=== PATIENT | female | born 1940 | race Caucasian/White ===

== ENCOUNTER → 2017-09-13 | Outpatient (CLI) | payer MEDICARE, BC ==
[~2017-09-13] MED LIST: ALORA0.05 MG/24 TD; BETAPACE 80MG80 MG PO; CALTRATE-600 W600 MG PO; CITRACAL + D 251 TAB PO; COUMADIN 1MG1 MG/TAB PO; COUMADIN 3MG3 MG/TAB PO; COUMADIN PO; COUMADIN4 MG; CYMBALTA30 MG PO; FISH OIL CONC1000 MG PO; FLEXERIL 1010 MG/TAB PO; GENTEAL0.32 OP; K-PHOS NEUTRAL250 M1 PO; LOVENOX 8080 MG/0.8 SQ; NORCO 325 MG-51 TAB PO; ONE DAILY1 TA2 PO; OSTEO-BI-FLEX 21 TAB PO; PREMARIN PO; PREVACID 30MG30 M1 PO; TRAVATAN Z 2.52.5 ML OU; TYLENOL 500MG500 MG PO; VITAMIN E1000 U/CAP PO; femhrt PO
== END ==
LOC: COL.CARD 12:55
DX: R25.1 Tremor, unspecified (principal)

== ENCOUNTER 2018-03-16 06:10 | Inpatient (IN) | payer MEDICARE, BC ==
[~2018-03-16] VITALS: Ht 175.3 cm; Wt 66.8 kg
[2018-03-16 10:00] VITALS: BP 131/50; PULSE 72; TEMP 98.2
[2018-03-16] MEDS ORDERED: CLARITIN 1010 MG/TAB PO (10:10)
[2018-03-16] MEDS ORDERED: EXELON4.5 MG PO (10:11)
[2018-03-16] MEDS ORDERED: NAMENDA 10MG TA10 MG PO (10:11)
[2018-03-16] MEDS ORDERED: COUMADIN 22.5 MG/TAB PO (10:13)
[2018-03-16] MEDS ORDERED: COUMADIN 2MG2 MG/TAB PO (10:14)
[2018-03-16] MEDS ORDERED: FOSAMAX 70MG TA70 MG PO (10:15)
[2018-03-16] MEDS ORDERED: NORCO 325 MG-101 TAB PO (10:17)
[2018-03-16] MEDS ORDERED: ATIVAN 0.50.5 MG/TAB PO (10:17)
[2018-03-16 10:18] LABS: BASO % 0.2 % (0.0-2.0); EOS % 0.2 % (0-4.0); GRAN # 8.9 (1.4-6.5); HEMOGLOBIN 11.3 g/dl (12.5-16.0); LYMPH # 1.2 (1.2-3.4); LYMPH % 9.5 % (20.0-51.0); MEAN CELL VOLUME 100 fl (80.0-100.0); MEAN CORPUSCULAR HEMOGLOBIN 33 pg (27.0-31.0); MEAN CORPUSCULAR HGB CONC 33 g/dl (33.0-37.0); MEAN PLATELET VOLUME 11.5 fl (7.4-10.4); MONO # 1.9 (0.1-0.6); MONO % 15.5 % (1.7-9.3); PLATELET COUNT 101 K/mm3 (130-400); RED BLOOD COUNT 3.46 M/mm3 (4.10-5.30); REDCELL DISTRIBUTION WIDTH-CV 16.1 % (11.5-14.5)
[2018-03-16] MEDS ORDERED: NEURONTIN300 MG/CAP PO (10:18)
[2018-03-16 10:21] LABS: INR 3.1 (0.8-3.0); PROTHROMBIN TIME 35.7 SECONDS (9.7-12.8)
[2018-03-16 10:28] LABS: HEMATOCRIT 34.7 % (37.0-47.0)
[2018-03-16 10:30] LABS: ALBUMIN 4.3 gm/dL (3.5-5.0); CALCIUM 8.7 mg/dL (8.4-10.2); CREATININE, serum 0.6 mg/dL (0.52-1.25); POTASSIUM 3.9 mmol/L (3.4-5.0); TOTAL PROTEIN 7.3 gm/dL (6.4-8.2)
[2018-03-16 10:37] LABS: PRE ALBUMIN 20.7 mg/dL (17.6-36.0)
[2018-03-16 15:30] VITALS: BP 104/45; PULSE 73; TEMP 98
[2018-03-16 20:36] VITALS: BP 129/48; PULSE 76; TEMP 98.1
[2018-03-16 22:16] LABS: INR 3.3 (0.8-3.0); PROTHROMBIN TIME 37.5 SECONDS (9.7-12.8)
[2018-03-16 23:49] VITALS: BP 93/44; PULSE 76; TEMP 97.5
[2018-03-17 00:41] VITALS: BP 109/43; PULSE 72
[2018-03-17 02:37] LABS: INR 2.4 (0.8-3.0); PROTHROMBIN TIME 27.3 SECONDS (9.7-12.8)
[2018-03-17 04:46] LABS: HEMOGLOBIN 10.5 g/dl (12.5-16.0); MEAN CELL VOLUME 100 fl (80.0-100.0); MEAN CORPUSCULAR HEMOGLOBIN 33 pg (27.0-31.0); MEAN CORPUSCULAR HGB CONC 33 g/dl (33.0-37.0); MEAN PLATELET VOLUME 11.8 fl (7.4-10.4); PLATELET COUNT 99 K/mm3 (130-400); RED BLOOD COUNT 3.18 M/mm3 (4.10-5.30); REDCELL DISTRIBUTION WIDTH-CV 16.5 % (11.5-14.5)
[2018-03-17 04:50] LABS: HEMATOCRIT 31.9 % (37.0-47.0)
[2018-03-17 04:52] LABS: INR 1.9 (0.8-3.0)
[2018-03-17 04:55] VITALS: BP 115/49; PULSE 77; TEMP 98.6
[2018-03-17 04:57] LABS: CALCIUM 8.2 mg/dL (8.4-10.2); CREATININE, serum 0.69 mg/dL (0.52-1.25); POTASSIUM 3.6 mmol/L (3.4-5.0)
[2018-03-17 06:26] LABS: BAND 12 % (0-10); LYMPHOCYTE 12 % (20.0-51.0); NEUTROPHILS 55 % (42.0-75.2)
[2018-03-17 06:27] LABS: HYPOCHROMIA 1+; PLATELET ESTIMATE DECREASED (NORMAL)
[2018-03-17 07:30] VITALS: BP 131/51; PULSE 76; TEMP 98.3
[2018-03-17 12:19] VITALS: BP 128/60; PULSE 80; TEMP 98
[2018-03-17 17:00] VITALS: BP 130/59; PULSE 82; TEMP 98.7
[2018-03-17 20:28] VITALS: BP 118/45; PULSE 82; TEMP 97.7
[2018-03-18] VITALS (12 sets, daily range): BP systolic 100–129; BP diastolic 40–56; PULSE 67–87; TEMP 96.2–98.9
[2018-03-18 07:10] LABS: MEAN CELL VOLUME 99 fl (80.0-100.0); MEAN CORPUSCULAR HGB CONC 33 g/dl (33.0-37.0); MEAN PLATELET VOLUME 12.6 fl (7.4-10.4); PLATELET COUNT 88 K/mm3 (130-400); RED BLOOD COUNT 2.78 M/mm3 (4.10-5.30); REDCELL DISTRIBUTION WIDTH-CV 16.2 % (11.5-14.5)
[2018-03-18 07:20] LABS: HEMATOCRIT 27.5 % (37.0-47.0); HEMOGLOBIN 9.1 g/dl (12.5-16.0); MEAN CORPUSCULAR HEMOGLOBIN 33 pg (27.0-31.0)
[2018-03-18 07:27] LABS: ALBUMIN 3.4 gm/dL (3.5-5.0); BILIRUBIN,TOTAL 0.7 mg/dL (0.0-1.0); CREATININE, serum 0.53 mg/dL (0.52-1.25); POTASSIUM 3.9 mmol/L (3.4-5.0); TOTAL PROTEIN 6.1 gm/dL (6.4-8.2)
[2018-03-18 07:33] LABS: INR 1.2 (0.8-3.0); PROTHROMBIN TIME 13.9 SECONDS (9.7-12.8)
[2018-03-18 09:13] LABS: ANISOCYTOSIS 1+; BAND 4 % (0-10); EOSINOPHIL 1 % (0-4); LYMPHOCYTE 17 % (20.0-51.0); NEUTROPHILS 62 % (42.0-75.2); PLATELET ESTIMATE DECREASED (NORMAL)
[2018-03-18 15:16] LABS: COLLECTION METHOD CATHETER
[2018-03-18 15:30] LABS: PH 7 (5-8); SQUAMOUS EPITHELIAL 0-2 /hpf; URINE APPEARANCE Clear; URINE BACTERIA None Seen /hpf; URINE BILIRUBIN Negative (NEGATIVE); URINE BLOOD Negative (NEGATIVE); URINE COLOR Yellow; URINE GLUCOSE Negative (NEGATIVE); URINE KETONE Negative (NEGATIVE); URINE LEUKOCYTE ESTERASE 1+ (NEGATIVE); URINE NITRATE Negative (NEGATIVE); URINE PROTEIN(semi-quant) Negative (NEGATIVE); URINE RBC 0-2 /hpf; URINE UROBILINOGEN >=4.0 mg/dL (NEGATIVE)
[2018-03-19] VITALS (13 sets, daily range): BP systolic 101–145; BP diastolic 41–61; PULSE 71–87; TEMP 97.5–98.4
[2018-03-19 07:01] LABS: MEAN CELL VOLUME 101 fl (80.0-100.0); MEAN CORPUSCULAR HGB CONC 33 g/dl (33.0-37.0); MEAN PLATELET VOLUME 12.1 fl (7.4-10.4); PLATELET COUNT 82 K/mm3 (130-400); RED BLOOD COUNT 2.28 M/mm3 (4.10-5.30); REDCELL DISTRIBUTION WIDTH-CV 16.6 % (11.5-14.5)
[2018-03-19 07:10] LABS: HEMATOCRIT 23.1 % (37.0-47.0); HEMOGLOBIN 7.5 g/dl (12.5-16.0); MEAN CORPUSCULAR HEMOGLOBIN 33 pg (27.0-31.0)
[2018-03-19 07:12] LABS: ALBUMIN 2.8 gm/dL (3.5-5.0); BILIRUBIN,TOTAL 0.6 mg/dL (0.0-1.0); CALCIUM 7.5 mg/dL (8.4-10.2); CREATININE, serum 0.52 mg/dL (0.52-1.25); POTASSIUM 3.7 mmol/L (3.4-5.0); TOTAL PROTEIN 5.5 gm/dL (6.4-8.2)
[2018-03-19 09:27] LABS: HEMATOCRIT 23.7 % (37.0-47.0); HEMOGLOBIN 7.6 g/dl (12.5-16.0)
[2018-03-19 09:50] LABS: ANISOCYTOSIS 1+; BAND 3 % (0-10); LYMPHOCYTE 9 % (20.0-51.0); NEUTROPHILS 70 % (42.0-75.2); PLATELET ESTIMATE DECREASED (NORMAL)
[2018-03-19 14:58] LABS: PARTIAL THROMBOPLASTIN TIME 26.3 SECONDS (26.0-37.0)
[2018-03-19 15:32] LABS: INR 1.3 (0.8-3.0); PROTHROMBIN TIME 14.6 SECONDS (9.7-12.8)
[2018-03-20 03:40] VITALS: BP 124/50; PULSE 92; TEMP 98.6
[2018-03-20 07:23] VITALS: BP 131/62; PULSE 81; TEMP 97.7
[2018-03-20 07:30] LABS: MEAN CORPUSCULAR HGB CONC 34 g/dl (33.0-37.0); MEAN PLATELET VOLUME 12.4 fl (7.4-10.4); PLATELET COUNT 108 K/mm3 (130-400); REDCELL DISTRIBUTION WIDTH-CV 18.8 % (11.5-14.5)
[2018-03-20 07:33] LABS: HEMATOCRIT 27.7 % (37.0-47.0); HEMOGLOBIN 9.3 g/dl (12.5-16.0); MEAN CELL VOLUME 96 fl (80.0-100.0); MEAN CORPUSCULAR HEMOGLOBIN 32 pg (27.0-31.0)
[2018-03-20 07:42] LABS: CALCIUM 7.6 mg/dL (8.4-10.2); CREATININE, serum 0.55 mg/dL (0.52-1.25); POTASSIUM 3.2 mmol/L (3.4-5.0)
[2018-03-20 08:11] LABS: BAND 3 % (0-10); LYMPHOCYTE 6 % (20.0-51.0); METAMYELOCYTE 3 % (0-0); NEUTROPHILS 76 % (42.0-75.2)
[2018-03-20 08:13] LABS: PLATELET ESTIMATE DECREASED (NORMAL)
[2018-03-20 08:14] LABS: HYPOCHROMIA 1+; POLYCHROMASIA 1+
[2018-03-20 08:16] LABS: MICROCYTOSIS 1+
[2018-03-20 08:46] LABS: INR 1.6 (0.8-3.0); PROTHROMBIN TIME 18.5 SECONDS (9.7-12.8)
[2018-03-20 11:27] VITALS: BP 111/56; PULSE 93; TEMP 97.9
[2018-03-20 15:25] VITALS: BP 102/61; PULSE 85; TEMP 97.8
[2018-03-20 20:00] VITALS: BP 121/48; PULSE 85; TEMP 98.6
[2018-03-21] VITALS: BP 119/54; PULSE 87; TEMP 98.3
[2018-03-21 04:00] VITALS: BP 121/52; PULSE 78; TEMP 97.9
[2018-03-21 06:30] LABS: HEMATOCRIT 24.1 % (37.0-47.0); MEAN CELL VOLUME 98 fl (80.0-100.0); MEAN CORPUSCULAR HEMOGLOBIN 32 pg (27.0-31.0); MEAN CORPUSCULAR HGB CONC 33 g/dl (33.0-37.0); MEAN PLATELET VOLUME 11.6 fl (7.4-10.4); PLATELET COUNT 127 K/mm3 (130-400); RED BLOOD COUNT 2.47 M/mm3 (4.10-5.30); REDCELL DISTRIBUTION WIDTH-CV 18.5 % (11.5-14.5)
[2018-03-21 06:43] LABS: CALCIUM 7.8 mg/dL (8.4-10.2); CREATININE, serum 0.65 mg/dL (0.52-1.25); MAGNESIUM 2.2 mg/dL (1.6-2.3); POTASSIUM 3.5 mmol/L (3.4-5.0)
[2018-03-21 07:40] VITALS: BP 112/48; PULSE 82; TEMP 98.3
[2018-03-21 07:45] LABS: INR 2.1 (0.8-3.0); PROTHROMBIN TIME 24.4 SECONDS (9.7-12.8)
[2018-03-21 12:00] VITALS: BP 117/61; PULSE 81; TEMP 98.2
[2018-03-21 15:55] VITALS: BP 127/53; PULSE 82; TEMP 98.4
[2018-03-21 17:23] LABS: HEMATOCRIT 23.9 % (37.0-47.0); HEMOGLOBIN 7.8 g/dl (12.5-16.0)
[2018-03-21 20:00] VITALS: BP 118/54; PULSE 88; TEMP 98.3
[2018-03-22] VITALS: BP 105/46; PULSE 79; TEMP 98.4
[2018-03-22 05:02] VITALS: BP 119/58; PULSE 82; TEMP 99.2
[2018-03-22 05:53] LABS: MEAN CELL VOLUME 101 fl (80.0-100.0); MEAN CORPUSCULAR HGB CONC 32 g/dl (33.0-37.0); MEAN PLATELET VOLUME 11.8 fl (7.4-10.4); PLATELET COUNT 169 K/mm3 (130-400); RED BLOOD COUNT 2.29 M/mm3 (4.10-5.30); REDCELL DISTRIBUTION WIDTH-CV 18.7 % (11.5-14.5)
[2018-03-22 05:56] LABS: HEMATOCRIT 23.2 % (37.0-47.0); HEMOGLOBIN 7.5 g/dl (12.5-16.0); MEAN CORPUSCULAR HEMOGLOBIN 33 pg (27.0-31.0)
[2018-03-22 05:58] LABS: INR 3.2 (0.8-3.0); PROTHROMBIN TIME 36.6 SECONDS (9.7-12.8)
[2018-03-22 06:12] LABS: ANISOCYTOSIS 1+; BAND 8 % (0-10); HYPOCHROMIA 1+; LYMPHOCYTE 9 % (20.0-51.0); METAMYELOCYTE 5 % (0-0); MICROCYTOSIS 1+; MYELOCYTE 5 % (0-0); NEUTROPHILS 61 % (42.0-75.2); NUCLEATED RED BLOOD CELL 2 (0-6); PLATELET ESTIMATE NORMAL (NORMAL)
[2018-03-22 07:34] VITALS: BP 110/53; PULSE 80; TEMP 98.1
[2018-03-22 11:40] VITALS: BP 108/46; PULSE 81; TEMP 98.2
[2018-03-22 16:09] VITALS: BP 123/54; PULSE 84; TEMP 98.1
[2018-03-22 19:39] VITALS: BP 134/62; PULSE 80; TEMP 98.3
[2018-03-23] VITALS (10 sets, daily range): BP systolic 114–147; BP diastolic 45–88; PULSE 71–88; TEMP 97.1–98.5
[2018-03-23 07:28] LABS: MEAN CORPUSCULAR HGB CONC 31 g/dl (33.0-37.0); MEAN PLATELET VOLUME 10.9 fl (7.4-10.4); PLATELET COUNT 176 K/mm3 (130-400); REDCELL DISTRIBUTION WIDTH-CV 19.3 % (11.5-14.5)
[2018-03-23 07:33] LABS: CREATININE, serum 0.63 mg/dL (0.52-1.25); POTASSIUM 3.6 mmol/L (3.4-5.0)
[2018-03-23 07:35] LABS: HEMATOCRIT 22.4 % (37.0-47.0); MEAN CORPUSCULAR HEMOGLOBIN 33 pg (27.0-31.0)
[2018-03-23 07:36] LABS: MEAN CELL VOLUME 107 fl (80.0-100.0)
[2018-03-23 07:37] LABS: HEMOGLOBIN 6.9 g/dl (12.5-16.0)
[2018-03-23 07:47] LABS: PROTHROMBIN TIME 45.2 SECONDS (9.7-12.8)
[2018-03-23 09:58] LABS: BAND 6 % (0-10); LYMPHOCYTE 14 % (20.0-51.0); METAMYELOCYTE 2 % (0-0); NEUTROPHILS 68 % (42.0-75.2); PLATELET ESTIMATE NORMAL (NORMAL)
[2018-03-23 09:59] LABS: POLYCHROMASIA 1+
[2018-03-24 04:19] LABS: MEAN CORPUSCULAR HGB CONC 32 g/dl (33.0-37.0); MEAN PLATELET VOLUME 10.9 fl (7.4-10.4); PLATELET COUNT 189 K/mm3 (130-400); RED BLOOD COUNT 2.62 M/mm3 (4.10-5.30); REDCELL DISTRIBUTION WIDTH-CV 19.9 % (11.5-14.5)
[2018-03-24 04:22] LABS: HEMOGLOBIN 8.4 g/dl (12.5-16.0); MEAN CORPUSCULAR HEMOGLOBIN 32 pg (27.0-31.0)
[2018-03-24 04:23] VITALS: BP 137/110; PULSE 77; TEMP 97.9
[2018-03-24 04:23] LABS: HEMATOCRIT 26.2 % (37.0-47.0); MEAN CELL VOLUME 100 fl (80.0-100.0)
[2018-03-24 04:26] LABS: CALCIUM 8.5 mg/dL (8.4-10.2); CREATININE, serum 0.58 mg/dL (0.52-1.25); POTASSIUM 4.1 mmol/L (3.4-5.0)
[2018-03-24 04:31] LABS: INR 3.8 (0.8-3.0); PROTHROMBIN TIME 43.7 SECONDS (9.7-12.8)
[2018-03-24 05:06] LABS: COLLECTION METHOD CATHETER
[2018-03-24 05:41] LABS: MUCOUS Present /lpf; PH 7 (5-8); SQUAMOUS EPITHELIAL 0-2 /hpf; URINE APPEARANCE Hazy; URINE BACTERIA None Seen /hpf; URINE BILIRUBIN Negative (NEGATIVE); URINE BLOOD Negative (NEGATIVE); URINE COLOR Amber; URINE GLUCOSE Negative (NEGATIVE); URINE KETONE Negative (NEGATIVE); URINE LEUKOCYTE ESTERASE Negative (NEGATIVE); URINE NITRATE Negative (NEGATIVE); URINE PROTEIN(semi-quant) 1+ (NEGATIVE); URINE RBC 0-2 /hpf; URINE UROBILINOGEN Negative (NEGATIVE)
[2018-03-24 06:07] LABS: ANISOCYTOSIS 2+; BAND 12 % (0-10); LYMPHOCYTE 16 % (20.0-51.0); METAMYELOCYTE 2 % (0-0); NEUTROPHILS 59 % (42.0-75.2); NUCLEATED RED BLOOD CELL 1 (0-6); PLATELET ESTIMATE NORMAL (NORMAL)
[2018-03-24 06:34] VITALS: BP 112/69; PULSE 76
[2018-03-24 07:30] VITALS: BP 156/81; PULSE 76; TEMP 97.7
[2018-03-24 09:08] LABS: MAGNESIUM 2.3 mg/dL (1.6-2.3)
[2018-03-24 09:25] LABS: PROLACTIN 40.8 ng/mL (3.0-18.6)
[2018-03-24 11:54] VITALS: BP 134/92; PULSE 70; TEMP 97.5
[2018-03-24 15:25] VITALS: BP 127/69; PULSE 80; TEMP 98.8
[2018-03-24 19:15] VITALS: BP 147/60; PULSE 79; TEMP 97.9
[2018-03-25 04:54] VITALS: BP 126/67; PULSE 71; TEMP 96.8
[2018-03-25 08:00] VITALS: BP 108/38; PULSE 67; TEMP 97.5
[2018-03-25 09:10] LABS: MEAN CELL VOLUME 103 fl (80.0-100.0); MEAN CORPUSCULAR HGB CONC 31 g/dl (33.0-37.0); PLATELET COUNT 199 K/mm3 (130-400); RED BLOOD COUNT 2.64 M/mm3 (4.10-5.30); REDCELL DISTRIBUTION WIDTH-CV 20.2 % (11.5-14.5)
[2018-03-25 09:17] LABS: CALCIUM 8.4 mg/dL (8.4-10.2); CREATININE, serum 0.64 mg/dL (0.52-1.25); HEMATOCRIT 27.2 % (37.0-47.0); HEMOGLOBIN 8.5 g/dl (12.5-16.0); MEAN CORPUSCULAR HEMOGLOBIN 32 pg (27.0-31.0); POTASSIUM 3.5 mmol/L (3.4-5.0)
[2018-03-25] MEDS ORDERED: SENOKOT S 50 MG1 TAB PO (09:20)
[2018-03-25] MEDS ORDERED: ATIVAN 0.50.5 MG/TAB PO ×2 (09:20)
[2018-03-25] MEDS ORDERED: AMOXICILLIN 8751 TAB PO (09:20)
[2018-03-25] MEDS ORDERED: GOOD NEIGH1200 MG/15 PO (09:20)
[2018-03-25 09:21] LABS: INR 3.1 (0.8-3.0); PROTHROMBIN TIME 35.7 SECONDS (9.7-12.8)
[2018-03-25] MEDS ORDERED: NORCO 325 MG-7.1 TAB PO (09:46)
[2018-03-25 10:05] LABS: ANISOCYTOSIS 2+; BAND 6 % (0-10); BASOPHIL 1 % (0-2); EOSINOPHIL 1 % (0-4); HYPOCHROMIA 2+; LYMPHOCYTE 25 % (20.0-51.0); METAMYELOCYTE 2 % (0-0); NEUTROPHILS 57 % (42.0-75.2); NUCLEATED RED BLOOD CELL 1 (0-6); PLATELET ESTIMATE NORMAL (NORMAL); POLYCHROMASIA 1+
[2018-03-25 10:40] VITALS: BP 108/38; PULSE 67; TEMP 97.5
[2018-03-25 11:29] VITALS: BP 131/52; PULSE 65; TEMP 98.2
== END 2018-03-25 13:30 | DRG 481 ==
LOC: SURG 06:10
PROVIDERS: Hospitalist; Internal Medicine; Internal Medicine Pulmonary Disease; Nurse Practitioner; Nurse Practitioner Family; Orthopaedic Surgery; Physician Assistant
PROC: 0QH606Z Insertion of Intramedullary Internal Fixation Device into Right Upper Femur, Open Approach (ICD-10-PCS; principal; 2018-03-18 08:00)
DX: S72.141A Displaced intertrochanteric fracture of right femur, initial encounter for closed fracture (principal); D62 Acute posthemorrhagic anemia; N39.0 Urinary tract infection, site not specified; E44.0 Moderate protein-calorie malnutrition; M96.840 Postprocedural hematoma of a musculoskeletal structure following a musculoskeletal system procedure; W18.30XA Fall on same level, unspecified, initial encounter; Z66 Do not resuscitate; I48.2 Chronic atrial fibrillation; Z79.01 Long term (current) use of anticoagulants; Z95.0 Presence of cardiac pacemaker; I27.20 Pulmonary hypertension, unspecified; F03.90 Unspecified dementia, unspecified severity, without behavioral disturbance, psychotic disturbance, mood disturbance, and anxiety; Z95.2 Presence of prosthetic heart valve; B95.2 Enterococcus as the cause of diseases classified elsewhere; E87.6 Hypokalemia
CPT/HCPCS: 99223-AI; 99232-AI; 99233-AI; 99239; A9284; C1713; J0690; J0696; J1644; J1650; J1940; J2060; J2270; J2405; J2704; J3010; J3430; J7042; J7120; P9016